=== PATIENT | female | born 1990 | race Caucasian/White ===

== ENCOUNTER → 2024-02-28 15:02 | Outpatient (REF) | payer OTHER, SELFPAY | LOC: RAD 15:02 | PROVIDERS: ATTENDING PHYSICIAN Obstetrics & Gynecology; FAMILY PHYSICIAN Family Medicine | DX: Z36.9 Encounter for antenatal screening, unspecified (principal) | CPT/HCPCS: 76801; 76817 ==

== ENCOUNTER 2024-03-03 06:31 | Day surgery (SDC) | payer OTHER, SELFPAY ==
[2024-03-03] VITALS (8 sets, daily range): BP systolic 98–119; BP diastolic 55–68; BMI 44.9
[2024-03-03] MEDS: CELEBREX 200 MG PO (09:11)
[2024-03-03] MEDS: TYLENOL 1000 MG PO (09:11)
[2024-03-03] MEDS: NORMOSOL-R 1000 IV (09:12)
[2024-03-03 09:53] LABS: Hematocrit 32.5 % (37.0-47.0); Hemoglobin 11.2 g/dL (12.0-16.0)
[2024-03-03] MEDS: VIBRAMYCIN 260 MG IV (09:56)
== END 2024-03-03 12:08 | disposition home or self-care (01) ==
LOC: SDS 06:31
PROVIDERS: ATTENDING PHYSICIAN Obstetrics & Gynecology
DX: O02.1 Missed abortion (principal)
CPT/HCPCS: 59820; 88305; 85014; 85018; 86850; 86900; 86901

== ENCOUNTER 2024-08-10 20:57 | Inpatient (IN) | payer OTHER, SELFPAY ==
[2024-08-10] VITALS (9 sets, daily range): BP systolic 104–165; BP diastolic 54–98; BMI 43.4
--- NOTE | 2024-08-10 16:49 | ED.GENMED ---
History of Present Illness
General
Chief Complaint: Flank Pain
Source: patient
Exam Limitations: none
Time Seen by Provider: 08/10/24 16:34
Nursing documentation reviewed up to this point in time: agreed with
History of Present Illness
History of Present Illness:
34-year-old female with history of kidney stones, anemia, anxiety/depression/cholecystectomy presents with sudden onset of left flank pain that is now radiating to her left abdomen starting about an hour ago. She feels nauseous but has not vomited
States pain 05/13
Past History
Past History
ED Past Medical History: Psychiatric (Anxiety,) and Other (Kidney stones)
ED Past Surgical History: Cholecystectomy and Urological (Kidney stones)
Social History
Tobacco: Smoker
Alcohol: None
Personal: Single
Living: with family
Review of Systems
Review of Systems
Allergies reviewed?: Yes
All Other Systems: ROS reviewed and negative except as documented in HPI and ROS
Constitutional: Denies fever or chills
Respiratory: Denies trouble breathing
Cardiac: Denies chest pain
ABD/GI: Reports abdominal pain and nausea; Denies vomiting
: Reports flank pain (Left); Denies difficulty voiding
Musculoskeletal: Reports no symptoms
Skin: Reports no symptoms
Phy Exam
Physical Exam
Physical Exam:
GENERAL: No acute distress. A&Ox3.
CONSTITUTIONAL: Afebrile.
EYES: Clear, conjunctivae normal
ENMT: moist mucus membranes, Pharynx nl
RESPIRATORY: Regular respirations, nonlabored, lungs clear.
CARDIOVASCULAR: Regular rate and rhythm, no murmurs, no rubs.
GI: Soft, nontender, Left flank tender to percussion, normal BS
MUSCULOSKELETAL: Moves with ease. Well perfused.
SKIN: Warm, dry, pink
PSYCH: Anxious mood and affect. Well kept, interactive and appropriate
NEUROLOGIC: Awake, alert and oriented. No focal neurological deficits
Course
Orders/Labs/Results
Orders:
Orders
08/10/24 16:42
Complete Blood Count/With Diff Urgent
Comprehensive Metabolic Panel Urgent
HCG, Serum Qualitative Screen Urgent
Comment: ADD ON
08/10/24 16:48
CT Abd/pel Without Iv Or Oral Urgent
Comment:
Reason For Exam: L flank pain hx kidney stones
Test Result ONCE
08/10/24 16:49
Ketorolac [Toradol] 15 mg IV NOW STA
08/10/24 16:50
Ondansetron Injectable [Zofran] 4 mg .ROUTE .STK-MED ONE
Ondansetron Injectable [Zofran] 4 mg IV NOW STA
08/10/24 16:54
Urinalysis Reflex To Culture Urgent
Date Specimen was Collected: 08/10/24
Time Specimen was Collected: 16:48
Urine Microscopic Reflex Cult Urgent
Urine Culture Urgent
SILVANA Source: U
Specimen Description:
Date Specimen was Collected: 08/10/24
Time Specimen was Collected: 16:48
08/10/24 17:35
Add On- LAB Urgent
Tests Added?: HCG
08/10/24 18:16
HYDROmorphone [Dilaudid] 1 mg IV NOW STA
08/10/24 19:30
Tamsulosin [Flomax] 0.4 mg PO NOW STA
08/10/24 19:59
UROLOGY CONSULT Urgent
Consulting Provider: Joao Anderson Jr.
Was physician already notified: Yes
Comment: L prox ureter stone
08/10/24 20:03
CefTRIAXone [Rocephin] 1,000 mg IV NOW STA
08/10/24 20:36
Dexamethasone Sod Phosphate [Decadron] 20 mg .ROUTE .STK-MED ONE
Fentanyl Citrate/Pf [Sublimaze] 100 mcg .ROUTE .STK-MED ONE
Lidocaine 2% Mpf [Xylocaine Mpf 2%] 100 mg .ROUTE .STK-MED ONE
Midazolam HCl [Versed] 2 mg .ROUTE .STK-MED ONE
Ondansetron Injectable [Zofran] 4 mg .ROUTE .STK-MED ONE
Propofol [Diprivan] 20 ml .ROUTE .STK-MED
08/10/24 20:41
Admit/Transfer Patient As Directed
Co-Sign Provider:
Level of Care: Inpatient admission
Assign to:: Medical/Surgical
Physician / Group: [email or web address]
Diagnosis: 5 mm Lt prox ureteric stone. Moderate obstructive uropathy
Reason for Hospitalization: 5 mm Lt proxy ureteric stone with severe ureteric colic
Moderate obstructive uropathy.
Expected length of stay greater than two midnights?: Yes
ELOS- Estimated Length of Stay in days: 3
I certify the patient meets the requirements for IP care: Yes
08/10/24 20:44
Code Status As Directed
Resuscitation Status: Full Code
08/10/24 21:59
0.9% Sodium Chloride 1000 ml [Nss] 1,000 ml IV 80 mls/hr
Acetaminophen [Tylenol] 650 mg PO Q4HPRN PRN
Bisacodyl [Dulcolax] 10 mg RECTAL [id number] PRN
Docusate W/Senna [Senokot-S] 1 tablet PO BIDPRN PRN
HYDROmorphone [Dilaudid] 0.5 mg IV Q4HPRN PRN
Ketorolac [Toradol] 10 mg IV Q6HPRN PRN
Polyethylene Glycol Powder [Miralax] 17 grams PO DAILYPRN PRN
08/10/24 21:59
Activity As Directed
Activity Level: With Assistance
Intake/ Output As Directed
Frequency: Per unit guidelines
Pneumatic Compression Sleeves As Directed
Type: Knee high
Vital Signs As Directed
Frequency: Per unit guidelines
Weight As Directed
Frequency: Daily
DX Deep Vein Thrombosis Video Routine
08/11/24 06:00
Basic Metabolic Panel IN AM
Complete Blood Count/No Diff IN AM
08/11/24 08:00
Sennosides [Senokot] 8.6 mg PO BID
Tamsulosin [Flomax] 0.4 mg PO DAILY
08/11/24 20:00
CefTRIAXone [Rocephin] 1,000 mg IV Q24H
Abnormal Lab Results
08/10/24 08/10/24
16:42 16:54
WBC 13.3 H 10^3/uL
(4.8-10.8)
Hct 36.8 L %
(37.0-47.0)
Absolute Neuts (auto) 7.3 H 10^3/uL
(1.4-6.5)
Absolute Lymphs (auto) 5.0 H 10^3/uL
(1.2-3.4)
Absolute Monos (auto) 0.7 H 10^3/uL
(0.1-0.6)
BUN 18 H mg/dl
(7-17)
Glucose 107 H mg/dl
(70-99)
ALT 38 H U/L
(0-35)
Ur Occult Blood Reflex 4+ A
(Negative)
Leukocyte Esterase Rfl 1+ A
(Negative)
Urine RBC 50-60 A /HPF
(0-2)
Urine WBC (Reflex) 11-15 A /HPF
(0-5)
Urine Bacteria (Reflex) Many A
(Negative)
08/10/24 16:42
08/10/24 16:42
Vital Signs
Initial and Last Documented VS:
Initial Vital Signs
Temp Pulse Resp BP Pulse Ox
98.1 F 82 16 165/98 98
08/10/24 16:30 08/10/24 16:30 08/10/24 16:30 08/10/24 16:30 08/10/24 16:30
Last Documented Vital Signs
Temp Pulse Resp BP Pulse Ox
98.8 F 82 18 138/80 100
08/10/24 23:00 08/10/24 23:00 08/10/24 23:00 08/10/24 23:00 08/10/24 23:00
MDM/Problems Addressed
Differential Diagnosis Includes:
ureteral stone, UTI
MDM/Problems Addressed:
34-year-old female with history of kidney stones, anemia, anxiety/depression/cholecystectomy presents with sudden onset of left flank pain that is now radiating to her left abdomen starting about an hour ago. She feels nauseous but has not vomited
States pain 9/10
Afebrile, uncomfortable
CBC, CMP with no clinically significant abnormality
UA: 4+ occult blood, +1 leukocyte Estrace, 50-60 RBCs, WBC 11-15 WBC with many bacteria and few squamous cells. Negative nitrates
No sign of sepsis, SIRS
19:30
CT abd/pelvis radiology report read: IMPRESSION:
5 mm calculus in the proximal left ureter with moderate obstructive uropathy.
Pt with L ureteropelvic junction stone w hydronephrosis, she says she's had to have them removed and stented both times in past she's had stones.
After Toradol, Flomax, Dilaudid, pain 8/[address] Anderson who requests admit to Hospitalist, antibiotics and will see in a.m.
Hospitalist notified of admission. Rocephin IV ordered.
Urine culture pending
*Critical Care Note
Total Time (30-74mins, 75-104mins- exclusive of procedures): Not Applicable
ED Attending Note
-
Portions of this chart may have been created with voice recognition software.� Occasional wrong word or��sound alike� substitutions may have occurred due to the inherent limitations of voice recognition software.
Discharge Plan
Departure
Patient Disposition: Admit
Date of Disposition: 08/10/24
Time of Disposition: 20:03
Admit to: Med/Surg
Presentation/result/management discussed w/ accepting MD/DO: Hospitalist
Condition: Fair
Discharge Problem:
Left ureteral calculus
Interventions
Interventions:
*General Assessment Last Done: 08/10/24 16:30
*Neglect/Abuse Screening Last Done: 08/10/24 16:30
*Nursing Disposition Last Done: 08/10/24 21:31
RR-Xrnown-Rkiuzcdbqy Assessment Last Done: 08/10/24 17:37
ED-Female Genitourinary Assessment Last Done: 08/10/24 17:37
Discharge Date and Time
Discharge Date/Time: 08/10/24 21:32
[2024-08-10] MEDS: ZOFRAN 4 MG IV (16:53)
[2024-08-10] MEDS: TORADOL 15 MG IV (16:54)
[2024-08-10 16:55] LABS: Hematocrit 36.8 % (37.0-47.0); Hemoglobin 12.2 g/dL (12.0-16.0); Mean Corp Hgb Conc. 33.2 g/dL (33.0-37.0); Mean Corpuscular Hgb 28.2 pg (27.0-31.0); Mean Corpuscular Volume 85.2 fL (81.0-99.0); Mean Platelet Volume 9.3 fL (7.4-10.4); Platelet Count 367 10^3/uL (130-400); Red Blood Cell Count 4.32 10^6/uL (4.20-5.40); Red Cell Dist. Width 13.7 % (11.5-14.5); White Blood Cell Count 13.3 10^3/uL (4.8-10.8)
[2024-08-10 17:06] LABS: Urine Albumin Trace (Neg - Trace); Urine Bilirubin Negative (Negative); Urine Character Slightly Cloudy (Clear); Urine Color Yellow; Urine Glucose Negative (Negative); Urine Ketone Negative (Negative); Urine Leukocyte 1+ (Negative); Urine Nitrite Negative (Negative); Urine Occult Blood 4+ (Negative); Urine Specific Gravity 1.015 (<1.030); Urine Urobilinogen Negative (Neg - 1+)
[2024-08-10 17:07] LABS: % Basophils 0.4 % (0-2); % Eosinophils 1.4 % (0-6); % Immature Granulocytes 0.3 % (0-0.5); % Lymphocytes 37.5 % (20.5-51.1); % Monocytes 5.5 % (1.7-9.3); % Neutrophils 54.9 % (42.2-75.2); Absolute Basophils 0.1 10^3/uL (0-0.2); Absolute Eosinophils 0.2 10^3/uL (0-0.7); Absolute Monocytes 0.7 10^3/uL (0.1-0.6); Absolute Neutrophils 7.3 10^3/uL (1.4-6.5); Nucleated Red Blood Cells % 0 %
[2024-08-10 17:09] LABS: ALT (SGPT) 38 U/L (0-35); AST (SGOT) 28 U/L (14-36); Albumin 4.3 g/dl (3.5-5.0); Alkaline Phosphatase 82 U/L (38-126); Blood Urea Nitrogen 18 mg/dl (7-17); Calcium 9.1 mg/dl (8.4-10.2); Carbon Dioxide 27 mmol/L (22-30); Chloride 104 mmol/L (98-107); Glucose 107 mg/dl (70-99); Potassium 4.1 mmol/L (3.5-5.1); Sodium 140 mmol/L (135-145); Total Bilirubin 0.2 mg/dl (0.2-1.3); Total Protein 7.2 g/dl (6.3-8.2); eGFR > 60.00
[2024-08-10 17:31] LABS: Urine Squamous Cell 16-20 /LPF (Few)
[2024-08-10 17:34] LABS: Urine Bacteria Many (Negative); Urine Red Blood Cell 50-60 /HPF (0-2)
[2024-08-10 18:10] LABS: HCG, Serum Qualitative Screen Negative
[2024-08-10] MEDS: DILAUDID 1 MG IV (18:23)
[2024-08-10] MEDS: FLOMAX 0.4 MG PO (19:54)
[2024-08-10] MEDS: ROCEPHIN 1000 MG IV (20:35)
--- NOTE | 2024-08-10 20:35 | HPS.HSE ---
Family Physician
-
Family Physician: Fernanda Burrows
Chief Complaint
-
Lt flank pain
History of Present Illness
34F HX kidney stones, anemia, anxiety/depression/cholecystectomy seen at ER
- acute onset of onset of left flank pain /10 while playing Bingo
- now radiating to her left abdomen starting about an hour ago.
- feels nauseous but has not vomited
Medical History
Past Medical History
Past Medical History: Reports GERD, Psychiatric (anxiety and depression ) and Other ((Kidney stones))
Past Surgical History: Reports Urological (Kidney stones removal , stent placement and removal )
Social History
Tobacco: Non-smoker
Alcohol: None
Drug: None
Personal:
Living: With Family
Family History
Family History: Not pertinent
Allergies / Home Medications
Allergies reflects when Allergies were last updated in [employer].
Home Medications with original date entered in [employer]
Allergy/Medication List:
Allergies
Allergy/AdvReac Type Severity Reaction Status Date / Time
No Known Drug Allergies Allergy Unknown Verified 08/10/24 16:30
Home Medications
1 tab PO DAILY 02/29/24
fluoxetine 20 mg tablet 20 mg PO DAILY 02/29/24
pantoprazole 20 mg tablet,delayed release 20 mg PO DAILY 02/29/24
acetaminophen 500 mg tablet 1,000 mg PO Q6H PRN pain 03/03/24
ibuprofen 600 mg tablet 600 mg PO Q6H PRN pain 03/03/24
Review of Systems
-
Constitutional: Reports No Symptoms
EENT: Reports No Symptoms
Respiratory: Reports No Symptoms
Cardiac: Reports No Symptoms
Abdomen/GI: Reports No Symptoms
: Reports See HPI
Musculoskeletal: Reports No Symptoms
Skin: Reports No Symptoms
Neurological: Reports No Symptoms
Endocrine: Reports No Symptoms
Hematologic/Lymphatic: Reports No Symptoms
Psych: Reports No Symptoms
Physical Exam
Vital Signs
Vital Signs
Temp Pulse Resp BP Pulse Ox
98.1 F 82 16 165/98 98
08/10/24 16:30 08/10/24 16:30 08/10/24 16:30 08/10/24 16:30 08/10/24 16:30
Physical Exam
General: Well Developed, Well Nourished, Conversant and Pain (looks uncomfortable with pain )
HEENT: NormoCephalic and Anicteric
Respiratory: Clear; No Wheezes, Rales or Rhonchi
Cardiac: S1/S2 and Regular Rhythm; No Murmur
Breast: Deferred by me
GI: Soft, Non Tender and Non Distended
Rectal: Deferred by Provider
Genito-urinary: No costovertebral tender
Musculoskeletal: No Edema
Skin: Warm and Dry
Neuro: AO x 3
Psych: Calm
Laboratory Results
-
08/10/24 16:42
08/10/24 16:42
Laboratory Results
Total Bilirubin 0.2 mg/dl (0.2-1.3) 08/10/24 16:42
AST 28 U/L (14-36) 08/10/24 16:42
ALT 38 U/L (0-35) H 08/10/24 16:42
Alkaline Phosphatase 82 U/L (38-126) 08/10/24 16:42
Data Reviewed
-
CT Scan: Report Reviewed by me
Lab Data: Labs Reviewed by me
Old Records: Reviewed
Impression/Plan
-
Vital Signs
Temp Pulse Resp BP Pulse Ox
98.1 F 82 16 165/98 98
08/10/24 16:30 08/10/24 16:30 08/10/24 16:30 08/10/24 16:30 12/08/24 16:30
Abnormal Lab Results
08/10/24 08/10/24
16:42 16:54
WBC 13.3 H
Hct 36.8 L
Absolute Neuts (auto) 7.3 H
Absolute Lymphs (auto) 5.0 H
Absolute Monos (auto) 0.7 H
BUN 18 H
Glucose 107 H
ALT 38 H
Ur Occult Blood Reflex 4+ A
Leukocyte Esterase Rfl 1+ A
Urine RBC 50-60 A
Urine WBC (Reflex) 11-15 A
Urine Bacteria (Reflex) Many A
CT abd/pelvis
5 mm calculus in the proximal left ureter with moderate obstructive uropathy.
NO PRIOR hospitalist admission:
ASSESSMENT & PLAN
Pending Rx reconciliation
5 mm Lt prox ureteric stone with severe ureteric colic
Moderate obstructive uropathy.
Afebrile, WCC 13
HX 3rd kidney stone
- NPO and IVF
- empiric IV CFTX
- Flomax
- PRN analgesia
- Anti emetics
- Uro will take her to OR tonight
Anxiety/depression'
- cont Fluoxetine
DVT Px: SCD
Full code
IP MS
--- NOTE | 2024-08-10 20:39 | CON.MD ---
Consultation - Medical
-
see dictated note
pt with long hx of stones- prior ureteroscopy and stents at [facility]
48hrs of progressive left flank pain with some ? chills
in ER- wbc elevated/ua +
ct + for 5mm prox left ureteral stone
pain very difficult to manage
reviewed options
admit/ OR for stent
risks, benefits, alternatives and disabilities reviewed
--- NOTE | 2024-08-10 22:07 | W.IMMPOSTOP ---
Surgical Immed Post Op Note
-
Primary Surgeon:
riaz
Assisting Surgeon:
Pre-op Diagnosis:
left ureteral stone and UTI
Post-op Diagnosis:
same
Procedure Performed:
cysto/left ureteral stent
Anesthesia Type:
gen
Specimen / Cultures:
none
Estimated Blood Loss:
1cc
Complications:
none
Operative Findings:
cloudy urine expressed with wire and stent placement
6/26cm stent placed
to pacu in stable condition
--- NOTE | 2024-08-10 23:19 | TRANSFER ---
Received report from [employer] Shannon - pt arrived to floor at 2250 dx Flank pain - cysto w left JJ stent placed. Pt AAOx3, able to make all needs known. Ambulated to bathroom w standby assist. VS WNL. Assessment as documented. Call lee within reach,
bed in lowest position. Care ongoing.
[2024-08-11] VITALS (7 sets, daily range): BP systolic 113–134; BP diastolic 59–77; BMI 44.3
[2024-08-11] MEDS: NSS 1000 IV (00:01)
[2024-08-11] MEDS: Pyridium 100 MG PO ×4 (00:01→23:52)
--- NOTE | 2024-08-11 04:08 | W.PN.URO.CBU ---
Today's Communication / Plan
-
continue antibx and await ucx results
Assessment / Plan
-
stone and UTI
s/p stent
post op- febrile- now afebrile- vss
continue hydration/rocephin
await ucx results
after discharge to arrange outpt f/u to discuss definitive stone surgery
Diagnosis
-
Date of Service: August 11, 2024
-
Patient Diagnosis:
stone
UTI
Post Op Day:
left ureteral stent 08/10
Subjective
-
pt's pain improved- had fevers so not feeling great this am
Objective
-
Vital Signs
Temp Pulse Resp BP Pulse Ox
98.3 F 81 18 113/59 100
08/11/24 03:00 08/11/24 03:00 08/11/24 03:00 08/11/24 03:00 08/11/24 03:00
Review of Systems
-
Constitutional: Fatigue
Respiratory: No Symptoms
Cardiac: No Symptoms
Abdomen/GI: No Symptoms
: Frequency
Physical Exam
-
General - no acute distress
Abdomen - soft, non-tender
[2024-08-11] MEDS: TYLENOL 650 MG PO ×3 (06:02→22:39)
[2024-08-11 06:44] LABS: Hematocrit 35.6 % (37.0-47.0); Hemoglobin 11.5 g/dL (12.0-16.0); Mean Corp Hgb Conc. 32.3 g/dL (33.0-37.0); Mean Corpuscular Hgb 27.7 pg (27.0-31.0); Mean Corpuscular Volume 85.8 fL (81.0-99.0); Mean Platelet Volume 9.4 fL (7.4-10.4); Platelet Count 290 10^3/uL (130-400); Red Blood Cell Count 4.15 10^6/uL (4.20-5.40); Red Cell Dist. Width 13.8 % (11.5-14.5); White Blood Cell Count 19.8 10^3/uL (4.8-10.8)
[2024-08-11 06:55] LABS: Blood Urea Nitrogen 14 mg/dl (7-17); Calcium 8.8 mg/dl (8.4-10.2); Carbon Dioxide 23 mmol/L (22-30); Chloride 105 mmol/L (98-107); Estimated Creatinine Clearance > 125 ml/min; Glucose 166 mg/dl (70-99); Potassium 4.2 mmol/L (3.5-5.1); Sodium 138 mmol/L (135-145); eGFR > 60.00
[2024-08-11] MEDS: TORADOL 10 MG IV (08:09)
[2024-08-11] MEDS: SENOKOT 8.6 MG PO ×2 (08:09→19:59)
[2024-08-11] MEDS: FLOMAX 0.4 MG PO (08:09)
--- NOTE | 2024-08-11 08:27 | W.PN.HOSP.TC ---
Today's Communication/Plan
-
await defervescence and Ucx results
since stent placed and patient is eating - stop IVF
Assessment / Plan
Assessment / Plan
34yo F with PMHX of anxiety, nephrolithiasis came with L flank pain, found ureteral stone and UTI, s/p cystoscopy with L reteral stent on 08/10/24
A/P
#Complicated UTI with L obstructing nephrolithiasis
s/p JJ by Urology
FOllow Ucx and tailor Abx to it
#Chronic transaminitis
CT abd showed no fatty liver infiltration
Check HepC Ab
Outpatient GI advised
#Hyperglycemia
Check HgbA1c
#Obesity
BMI 44.2
advise to decrease calorie intake
DVT ppx on hep
FUll code
I have spent at least 57min reviewing chart, test results, communicating with consultants and direct patient care
Anticipated Discharge: 24 - 48 hours
Subjective/Interval History
-
Date of Service: August 11, 2024
Objective Data
-
Labs:
Laboratory Results
08/11/24
05:59
WBC 19.8 H
Hgb 11.5 L
Hct 35.6 L
Plt Count 290 D
Sodium 138
Potassium 4.2
Chloride 105
Carbon Dioxide 23
BUN 14
Creatinine 0.7
Glucose 166 H
Calcium 8.8
Vital Signs:
Vital Signs
Temp Pulse Resp BP Pulse Ox
98.7 F 78 18 125/69 97
08/11/24 06:51 08/11/24 06:51 08/11/24 06:51 08/11/24 06:51 08/11/24 06:51
I&O
08/10/24 08/11/24 08/12/24
06:59 06:59 06:59
Intake Total 1000 / 1000
Balance 1000 / 1000
Review of Systems
-
History Source: Patient
All other systems: Reviewed and negative
Genitourinary: Reports Flank Pain (L)
Physical Exam
-
General: No Apparent Distress
HEENT: Normocephalic
Respiratory: Clear to Auscultation
GI: Soft, Nontender and Nondistended
Genito-urinary: Costovertebral Angle Tend (L)
Musculoskeletal: No Clubbing, No Cyanosis and No Edema
Neuro: Awake, Alert, Oriented and AO x 3
Psych: Calm
[2024-08-11 09:12] LABS: ALT (SGPT) 34 U/L (0-35); AST (SGOT) 30 U/L (14-36); Albumin 3.9 g/dl (3.5-5.0); Alkaline Phosphatase 63 U/L (38-126); Direct Bilirubin 0.1 mg/dl (0.0-0.4); Total Bilirubin 0.5 mg/dl (0.2-1.3); Total Protein 6.6 g/dl (6.3-8.2)
[2024-08-11 09:58] LABS: Glycohemoglobin (HgbA1c) 5.7 % (4.0-5.6)
--- NOTE | 2024-08-11 10:27 | CM ---
Reviewed the chart notes and spoke with the patient at the bedside. Patient history includes kidney stones, anemia, anxiety/depression/cholecystectomy. Patient is admitted for flank pain. Patient is post-op for left ureteral stent placement. The
patient resides with her significant other in a two story home with two steps to enter. The patient reports no DME/VN/SNF in the past. The patient confirmed her [facility]. continues to be
available to patient/family and is monitoring medical plan for needs at discharge.
Plan: Discharge to home when medically stable. Patient's significant other will provide transportation.
[2024-08-11] MEDS: PROZAC 20 MG PO (16:31)
[2024-08-11] MEDS: PROTONIX 20 MG PO (16:31)
[2024-08-11 19:15] LABS: Hepatitis C Antibody Negative (Negative)
[2024-08-11] MEDS: ROCEPHIN 1000 MG IV (19:59)
[2024-08-11] MEDS: STERILE WATER FOR INJECTION 10 ML IV (19:59)
[2024-08-11] MEDS: FLUSH (NSS) 2 FLUSH IV (20:00)
[2024-08-12 05:22] VITALS: BMI 44.6
[2024-08-12 06:00] VITALS: BMI 44.6
[2024-08-12] MEDS: TORADOL 10 MG IV (07:25)
[2024-08-12 07:30] LABS: % Basophils 0.3 % (0-2); % Eosinophils 0.5 % (0-6); % Immature Granulocytes 0.6 % (0-0.5); % Lymphocytes 22.9 % (20.5-51.1); % Monocytes 6.5 % (1.7-9.3); % Neutrophils 69.2 % (42.2-75.2); Absolute Eosinophils 0.1 10^3/uL (0-0.7); Absolute Immature Granulocytes 0.1 10^3/uL (0-0.05); Absolute Lymphocytes 2.6 10^3/uL (1.2-3.4); Absolute Monocytes 0.8 10^3/uL (0.1-0.6); Hematocrit 34.2 % (37.0-47.0); Hemoglobin 10.8 g/dL (12.0-16.0); Mean Corp Hgb Conc. 31.6 g/dL (33.0-37.0); Mean Corpuscular Hgb 27.6 pg (27.0-31.0); Mean Corpuscular Volume 87.5 fL (81.0-99.0); Mean Platelet Volume 9.7 fL (7.4-10.4); Nucleated Red Blood Cells % 0 %; Platelet Count 281 10^3/uL (130-400); Red Blood Cell Count 3.91 10^6/uL (4.20-5.40); Red Cell Dist. Width 14.2 % (11.5-14.5); White Blood Cell Count 11.5 10^3/uL (4.8-10.8)
--- NOTE | 2024-08-12 08:14 | W.PN.URO.CBU ---
Today's Communication / Plan
-
discharge when ucx back
Assessment / Plan
-
stone and UTI
s/p stent
post op- febrile- now afebrile- vss
continue hydration/rocephin
await ucx results
after discharge to arrange outpt f/u to discuss definitive stone surgery
Diagnosis
-
Date of Service: August 12, 2024
-
Patient Diagnosis:
stone
UTI
Post Op Day:
left ureteral stent 08/10
Subjective
-
pt feels better
occ flank pain
no fevers
wbc downtrending
uc still pending
Objective
-
Vital Signs
Temp Pulse Resp BP Pulse Ox
98.9 F 92 20 134/74 99
08/11/24 22:36 08/11/24 22:36 08/11/24 22:36 08/11/24 22:36 08/11/24 22:36
Intake and Output
08/11/24 08/12/24 08/13/24
06:59 06:59 06:59
Intake Total 1000 / 1000 2940 / 2940
Balance 1000 / 1000 2940 / 2940
Intake:
Oral fluids 480 / 480 2940 / 2940
IV fluids (Total) 520 / 520
Other:
Number of approximated MODERATE 3 4
amounts of urine
Number of approximated LARGE 2
amounts of urine
Laboratory Results
08/12/24 06:14
08/11/24 05:59
Review of Systems
-
Constitutional: Fatigue
Respiratory: No Symptoms
Cardiac: No Symptoms
Abdomen/GI: No Symptoms
: Frequency
Physical Exam
-
General - no acute distress
[2024-08-12 08:38] VITALS: BP 120/80
[2024-08-12] MEDS: Pyridium 100 MG PO (09:01)
[2024-08-12] MEDS: SENOKOT 8.6 MG PO (09:01)
[2024-08-12] MEDS: FLOMAX 0.4 MG PO (09:01)
[2024-08-12] MEDS: PROTONIX 20 MG PO (09:01)
[2024-08-12] MEDS: PROZAC 20 MG PO (09:01)
--- NOTE | 2024-08-12 09:32 | CM ---
Reviewed the chart notes. Per note, patient will discharge once urine culture results are received. CM continues to be available to patient/family and is monitoring medical plan for needs at discharge.
Plan: Discharge to home when medically stable. No needs anticipated.
--- NOTE | 2024-08-12 12:05 | W.PN.HOSP.TC ---
Today's Communication/Plan
-
dc
Assessment / Plan
Assessment / Plan
34yo F with PMHX of anxiety, nephrolithiasis came with L flank pain, found ureteral stone and UTI, s/p cystoscopy with L ureteral stent on 08/10/24, planned for outpatient extraction in 2 weeks by Urology. Ucx grew mixed piero, but patient reached
defervescence on Ceftriaxone with improvement in WBC count, so reasonable to complete treatment with Cefdinir for 7 more days as agreed with Urologist. Medically stable for d/c
A/P
#Complicated UTI with L obstructing nephrolithiasis
s/p JJ by Urology
Follow Ucx and tailor Abx to it
#Chronic transaminitis
CT abd showed no fatty liver infiltration
HepC Ab neg
Outpatient GI advised - defer to PCP
#Hyperglycemia
Check HgbA1c
#Obesity
BMI 44.2
advise to decrease calorie intake
DVT ppx on hep
FUll code
I have spent at least 37min reviewing chart, test results, communicating with consultants and direct patient care
Anticipated Discharge: Today
Subjective/Interval History
-
Date of Service: August 12, 2024
Objective Data
-
Labs:
Laboratory Results
08/12/24
06:14
WBC 11.5 H
Hgb 10.8 L
Hct 34.2 L
Plt Count 281
Vital Signs:
Vital Signs
Temp Pulse Resp BP Pulse Ox
98.5 F 92 18 120/80 96
08/12/24 08:38 08/11/24 22:36 08/12/24 08:38 08/12/24 08:38 08/12/24 08:38
I&O
08/11/24 08/12/24 08/13/24
06:59 06:59 06:59
Intake Total 1000 / 1000 2940 / 2940
Balance 999
Review of Systems
-
History Source: Patient
All other systems: Reviewed and negative
Physical Exam
-
General: No Apparent Distress
Neuro: Awake, Alert, Oriented and AO x 3
Psych: Calm
--- NOTE | 2024-08-12 12:09 | W.DCSUMMARY ---
Discharge Summary
Discharge Data
Date of Admission: 08/10/24
Date of Discharge: 08/12/24
-
Pending Results: No
Hospital Course
34yo F with PMHX of anxiety, nephrolithiasis came with L flank pain, found ureteral stone and UTI, s/p cystoscopy with L ureteral stent on 08/10/24, planned for outpatient extraction in 2 weeks by Urology. Ucx grew mixed piero, but patient reached
defervescence on Ceftriaxone with improvement in WBC count, so reasonable to complete treatment with Cefdinir for 7 more days as agreed with Urologist. Medically stable for d/c
I have spent at least 36min discharging the patient
Patient was managed for:
#Complicated UTI with L obstructing nephrolithiasis
#Chronic transaminitis
#Hyperglycemia
#Obesity
Discharge Plan
-
Patient Disposition: Home (Routine Discharge)
Diet: Regular
Activity: No restrictions
Driving Restrictions: As prior to admission
Referrals:
Fernanda Burrows, [Primary Care Provider] -
Joao Anderson Jr., MD [Active] - in one to two weeks
Prescriptions:
New
cefdinir 300 mg capsule
300 mg PO Q12H Qty: 14 0RF
Continued
pantoprazole 20 mg Tablet,Delayed Release (Dr/Ec)
20 mg PO DAILY
fluoxetine 20 mg Tablet
20 mg PO DAILY
varenicline [Chantix] 1 mg Tablet
1 mg PO BID
Discharge Orders:
Discharge Patient (As Directed); Ordered 08/12/24
Ordered By: Yaw Roa
Discharge Date and Time
Print Language: HONDURAN
--- NOTE | 2024-08-12 13:53 | W.PN.UPDATE ---
Update Note
Progress Note Update
Note as per patient request:
Re: Daniel Nahed Justinn, 1990
To Whom It May Concern
Nahed Sanchez�neils admitted to [facility] on�08/10/2024� and was discharged on 08/12/24
She�can return to his usual work duties without any restrictions.
Feel free to contact me with any question related to this patient
[2024-08-12 14:10] VITALS: BP 132/89
== END 2024-08-12 14:40 | disposition home or self-care (01) | DRG 660 ==
LOC: 2 SOUTH 20:57
PROVIDERS: Registered Nurse; ADMITTING PHYSICIAN Internal Medicine; ATTENDING PHYSICIAN Internal Medicine; CONSULT PHYSICIAN Specialist; EMERGENCY PHYSICIAN Emergency Medicine; PRIMARYCARE PHYSICIAN Family Medicine
PROC: 0T778DZ Dilation of Left Ureter with Intraluminal Device, Via Natural or Artificial Opening Endoscopic (ICD-10-PCS; 2024-08-11)
DX: N20.2 Calculus of kidney with calculus of ureter (principal); N39.0 Urinary tract infection, site not specified; Z68.41 Body mass index [BMI] 40.0-44.9, adult; F17.200 Nicotine dependence, unspecified, uncomplicated; F32.A Depression, unspecified; F41.9 Anxiety disorder, unspecified; E66.9 Obesity, unspecified
CPT/HCPCS: 74018; 74176; 76000; 80053; 81003; 81015; 82248; 83036; 84703; 85025; 85027; 86803; 87086; 96374; 96375; 99285; C2617

== ENCOUNTER 2024-08-19 06:12 | Day surgery (SDC) | payer OTHER, SELFPAY ==
[2024-08-19] VITALS (8 sets, daily range): BP systolic 120–165; BP diastolic 73–99; BMI 44.7
[2024-08-19] MEDS: NORMOSOL-R/PLASMALYTE-A 1000 IV (06:54)
[2024-08-19] MEDS: TYLENOL 1000 MG PO (06:59)
[2024-08-19] MEDS: Pyridium 200 MG PO (09:28)
[2024-08-19] MEDS: DETROL LA 4 MG PO (09:28)
== END 2024-08-19 10:54 | disposition home or self-care (01) ==
LOC: SDS 06:12
PROVIDERS: ATTENDING PHYSICIAN Specialist
PROC: 0TC78ZZ Extirpation of Matter from Left Ureter, Via Natural or Artificial Opening Endoscopic (ICD-10-PCS; 2024-08-19)
PROC: 0T778DZ Dilation of Left Ureter with Intraluminal Device, Via Natural or Artificial Opening Endoscopic (ICD-10-PCS; 2024-08-19)
DX: N20.2 Calculus of kidney with calculus of ureter (principal)
CPT/HCPCS: 52356; 74018; 76000; 82365; C1758; C1894; C2617; J1580

== ENCOUNTER → 2025-01-29 09:53 | Outpatient (REF) | payer OTHER, SELFPAY | LOC: HWRAD 09:53 | PROVIDERS: ATTENDING PHYSICIAN Obstetrics & Gynecology; FAMILY PHYSICIAN Family Medicine | DX: N93.9 Abnormal uterine and vaginal bleeding, unspecified (principal) | CPT/HCPCS: 76830; 76856 ==